=== PATIENT | male | born 1990 | race Caucasian/White ===

== ENCOUNTER 2017-01-19 13:46 | Emergency (ER) | payer MEDICAID ==
--- NOTE | 2017-01-19 13:49 | EDM.PDOC ---
ED HPI ENT - General Chief Complaint: ENT Problem Stated Complaint: COLD [phone] Time Seen by Provider: 01/19/17 13:48 Source of Information: Reports: Patient, Old records, RN, RN notes reviewed History Limitations: Reports: No limitations - History of Present Illness INITIAL COMMENTS - FREE TEXT/NARRATIVE: C/O cold Sx's, congestion x1 week. Admits to sore throat. Had fever at onset, but not since. Employer sent him home today due to cough. Timing/Duration: Reports: Week(s): (1), Constant Severity: moderate Improves with: Reports: None Worsens with: Reports: None Associated Symptoms: Reports: no other symptoms - Related Data Allergies/ADRs: Allergies Allergy/AdvReac Type Severity Reaction Status Date / Time Sulfa (Sulfonamide Allergy Hives Verified 01/19/17 13:53 Antibiotics) Home Meds: Home Meds . [Unable to Verify Home Med List] 01/19/17 [History] Past Medical History - Past Health History Medical/Surgical History: Denies Medical/Surgical History HEENT History: Reports: Impaired vision, Other (see below) Other HEENT History: dental pain Cardiovascular History: Reports: Hypertension Respiratory History: Reports: None Gastrointestinal History: Reports: None Genitourinary History: Reports: None Neurological History: Reports: Migraines - Past Surgical History GI Surgical History: Reports: Appendectomy Musculoskeletal Surgical History: Reports: Other (see below) Other Musculoskeletal Surgeries/Procedures:: wrist fracture Social & Family History - Family History Family Medical History: Noncontributory - Tobacco Use Smoking Status *Q: Current Every Day Smoker Years of Tobacco use: 14 Packs/Tins Daily: 0.5 Used Tobacco, but Quit: No Month Tobacco Last Used: february 2015 Second Hand Smoke Exposure: No - Caffeine Use Caffeine Use: Reports: Coffee, Energy drinks, Soda, Tea - Alcohol Use Days Per Week of Alcohol Use: 1 Number of Drinks Per Day: 4 Total Drinks Per Week: 4 - Recreational Drug Use Recreational Drug Use: No - Living Situation & Occupation Living situation: Reports: single, with family Occupation: employed ED ROS ENT - Review of Systems Review Of Systems: ROS reveals no pertinent complaints other than HPI. ED EXAM, ENT - Physical Exam Exam: See Below Exam Limited By: No limitations General Appearance: alert, WD/WN, no apparent distress Eye Exam: bilateral eye: normal inspection Ears: normal external exam, normal canal, hearing grossly normal, normal TMs Nose: no blood, nasal discharge (thick, yellow). No: injected turbinates Mouth/Throat: Normal gums, Normal lips, Normal teeth, Other (postnasal drip, no pharyngeal erythema) Head: atraumatic, normocephalic Neck: normal inspection, supple, non-tender, full range of motion. No: lymphadenopathy (L), lymphadenopathy (R) Respiratory/Chest: no respiratory distress, lungs clear, normal breath sounds, no accessory muscle use, chest non-tender Cardiovascular: normal peripheral pulses, regular rate, rhythm, no edema, no gallop, no JVD, no murmur, no rub GI/Abdominal: normal bowel sounds, soft, non tender, no distention Neurological: alert, oriented, no motor/sensory deficits Psychiatric: normal affect, normal mood Skin: Warm, Dry, Intact, Normal color, No rash Course - Vital Signs Last Recorded V/S: Last Vital Signs Temp 36.1 C 01/19/17 14:00 Pulse 66 01/19/17 14:00 Resp 18 01/19/17 14:00 BP 128/73 01/19/17 14:00 Pulse Ox 97 01/19/17 14:00 - Orders/Labs/Meds Labs: Laboratory Tests 01/19/17 Range/Units 14:17 WBC 12.8 H (5.0-10.0) 10^3/uL RBC 5.15 (4.6-6.2) 10^6/uL Hgb 16.0 (14.0-18.0) g/dL Hct 45.9 (40.0-54.0) % MCV 89.1 (80-100) fL MCH 31.1 (27.0-34.0) pg MCHC 34.9 (33.0-35.0) g/dL Plt Count 346 (150-450) 10^3/uL Neut % (Auto) 68.2 (42.2-75.2) % Lymph % (Auto) 24.4 (20.5-50.1) % Dauphin % (Auto) 5.8 (2-8) % Eos % (Auto) 1.4 (1.0-3.0) % Baso % (Auto) 0.2 (0.0-1.0) % - Radiology Interpretation Free Text/Narrative:: CXR: mild bronchitis, no focal infiltrate per Rad. report. Departure - Departure Time of Disposition: 14:45 Disposition: Home, Self-Care 01 Condition: good Clinical Impression: URI with cough and congestion Acute bronchitis Qualifiers: Bronchitis organism: unspecified organism Qualified Code(s): J20.9 - Acute bronchitis, unspecified Pharyngitis Qualifiers: Pharyngitis/tonsillitis etiology: unspecified etiology Qualified Code(s): J02.9 - Acute pharyngitis, unspecified Instructions: Acute Bronchitis, [id number], Upper Respiratory Infection, Adult, Pyie-ed-Sxkg Forms: ED Department Discharge Additional Instructions: Rx: Z-Krishna 250mg Rx: Tessalon Perles 200mg Rx: Claritin D-24HR Follow up in clinic if not improving in 2 to 3 days.
[2017-01-19 14:03] VITALS: BP 128/73
--- NOTE | 2017-01-19 14:46 | CR ---
CLINICAL HISTORY: 26-year-old male with productive cough. INTERPRETATION: Normal cardiac silhouette. No alveolar edema or dependent effusion. Subtle peribronchial "cuffing" suggesting reactive airway disease or bronchitis but no lung mass, hi lar lymphadenopathy or focal lobar pneumonia. No atelectasis/collapse. No pneumothorax. CONCLUSION: Mild bronchitis. No lobar pneumonia.
== END 2017-01-19 14:55 | disposition home or self-care (01) ==
LOC: DL.ED 13:46
DX: J20.9 Acute bronchitis, unspecified (principal); J06.9 Acute upper respiratory infection, unspecified; J02.9 Acute pharyngitis, unspecified; I10 Essential (primary) hypertension; F17.210 Nicotine dependence, cigarettes, uncomplicated; Z90.49 Acquired absence of other specified parts of digestive tract; Z88.2 Allergy status to sulfonamides
CPT/HCPCS: 36415; 71020; 85025; 99283

== ENCOUNTER 2017-05-30 14:38 | Emergency (ER) | payer MEDICAID ==
[2017-05-30 15:17] VITALS: BP 127/72
[2017-05-30] MEDS ORDERED: Ketorolac 30 MG/ML SDV IM ONE (15:44)
[2017-05-30] MEDS ORDERED: Cyclobenzaprine 10 MG Tab PO ONE (15:45)
[2017-05-30] MEDS ORDERED: Gabapentin 300 MG Cap PO ONE (15:48)
--- NOTE | 2017-05-31 11:53 | EDM.PDOC ---
Scribed by Leida Zepeda 05/30/17 [id number] for Gregory Salinas MD ED HPI GENERAL MEDICAL PROBLEM - General Chief Complaint: Back Pain or Injury Stated Complaint: BACK PAINS, [phone] Time Seen by Provider: 05/30/17 15:35 Source of Information: Reports: Patient, RN, RN Notes Reviewed History Limitations: Reports: No Limitations - History of Present Illness INITIAL COMMENTS - FREE TEXT/NARRATIVE: Complaint of onset back pain 2 days ago while playing with his son. No specific injury. Complaint of pain with muscle spasms and painful range of motion. Pain shoots into the left buttock, but not down the leg. Location: Reports: Back Quality: Reports: Ache Severity: Severe Improves with: Reports: None Worsens with: Reports: None Associated Symptoms: Reports: No Other Symptoms Left Middle Back Pain Score (Numeric/FACES): 6 - Related Data Allergies Allergy/AdvReac Type Severity Reaction Status Date / Time Sulfa (Sulfonamide Allergy Hives Verified 05/30/17 15:12 Antibiotics) Home Meds: Home Meds Propranolol HCl 40 mg PO 05/30/17 [History] Past Medical History - Past Health History Medical/Surgical History: Denies Medical/Surgical History HEENT History: Reports: Impaired Vision Other HEENT History: dental pain Cardiovascular History: Reports: Hypertension Respiratory History: Reports: None Gastrointestinal History: Reports: None Genitourinary History: Reports: None Musculoskeletal History: Reports: Back Pain, Chronic Neurological History: Reports: Migraines Psychiatric History: Reports: None Endocrine/Metabolic History: Reports: None Hematologic History: Reports: None Immunologic History: Reports: None Oncologic (Cancer) History: Reports: None Dermatologic History: Reports: None - Infectious Disease History Infectious Disease History: Reports: None - Past Surgical History Head Surgeries/Procedures: Reports: None GI Surgical History: Reports: Appendectomy Social & Family History - Family History Family Medical History: Noncontributory - Tobacco Use Smoking Status *Q: Current Every Day Smoker Years of Tobacco use: 13 Packs/Tins Daily: 0.5 Used Tobacco, but Quit: No Month Tobacco Last Used: february 2015 Second Hand Smoke Exposure: No - Caffeine Use Caffeine Use: Reports: Coffee, Energy Drinks, Soda - Alcohol Use Days Per Week of Alcohol Use: 1 Number of Drinks Per Day: 4 Total Drinks Per Week: 4 - Recreational Drug Use Recreational Drug Use: No - Living Situation & Occupation Living situation: Reports: Single, with Family Occupation: Employed ED ROS GENERAL - Review of Systems Review Of Systems: ROS reveals no pertinent complaints other than HPI. ED EXAM,LOWER BACK PAIN/INJURY - Physical Exam Exam: See Below Exam Limited By: No Limitations General Appearance: Alert, WD/WN, No Apparent Distress Neck: Normal Inspection, Supple, Non-Tender, Full Range of Motion Respiratory/Chest: No Respiratory Distress, Lungs Clear, Normal Breath Sounds, No Accessory Muscle Use, Chest Non-Tender Cardiovascular: Normal Peripheral Pulses, Regular Rate, Rhythm, No Edema, No Gallop, No JVD, No Murmur, No Rub GI/Abdominal: Normal Bowel Sounds, Soft, Non-Tender, No Organomegaly, No Distention, No Abnormal Bruit, No Mass Back Exam: Other (lumbar paraspinal tenderness with muscle spasms left greater than right. Decreased L-spine range of motion due to pain. Focal L SI joint tenderness.) Neurological: Alert, Normal Mood/Affect, Normal Dorsiflexion, CN II-XII Intact, Normal Plantar Flexion, Normal Gait, Normal Reflexes, No Motor/Sensory Deficits , Oriented x 3 Psychiatric: Normal Affect, Normal Mood Skin Exam: Warm, Dry, Intact, Normal Color, No Rash Course - Vital Signs Last Recorded V/S: Last Vital Signs Temp 36.4 C 05/30/17 15:14 Pulse 70 05/30/17 15:14 Resp 16 05/30/17 15:14 BP 127/72 05/30/17 15:14 Pulse Ox 98 05/30/17 15:14 - Orders/Labs/Meds Meds: Medications Discontinued Medications Generic Name Dose Route Start Last Admin Trade Name Audrey PRN Reason Stop Dose Admin Cyclobenzaprine HCl 10 mg 05/30/17 15:45 05/30/17 16:03 Flexeril PO 05/30/17 15:46 10 mg ONETIME ONE Administration Gabapentin 300 mg 05/30/17 15:48 05/30/17 16:03 Neurontin PO 05/30/17 15:49 300 mg ONETIME ONE Administration Ketorolac Tromethamine 60 mg 05/30/17 15:44 05/30/17 16:03 Toradol IM 05/30/17 15:45 60 mg ONETIME ONE Administration Departure - Departure Time of Disposition: 16:19 Disposition: Home, Self-Care 01 Condition: Good Clinical Impression: Acute exacerbation of chronic low back pain, Lumbar paraspinal muscle spasm - Discharge Information Instructions: Chronic Back Pain Forms: ED Department Discharge Additional Instructions: RX: Gabapentin 300mg. RX: Medrol dose Pac. Follow up in clinic for recheck in 5 to 7 days. I have read and agree with the documentation that has been completed regarding this visit. By signing this record, I attest that the documentation was completed in my physical presence and is an accurate record of the encounter.
== END 2017-05-30 16:30 | disposition home or self-care (01) ==
LOC: DL.ED 14:38
DX: M62.830 Muscle spasm of back (principal); M54.5 Low back pain; G89.29 Other chronic pain; I10 Essential (primary) hypertension; G43.909 Migraine, unspecified, not intractable, without status migrainosus; H54.7 Unspecified visual loss; F17.210 Nicotine dependence, cigarettes, uncomplicated; Z88.2 Allergy status to sulfonamides
CPT/HCPCS: 96372; 99283; A9270; J1885

== ENCOUNTER 2017-09-03 16:29 | Emergency (ER) | payer MEDICAID ==
[2017-09-03 16:36] VITALS: BP 147/86
--- NOTE | 2017-09-03 16:51 | EDM.PDOC ---
ED HPI GENERAL MEDICAL PROBLEM - General Chief Complaint: Back Pain or Injury Stated Complaint: BACK PAIN [id number] Time Seen by Provider: 09/03/17 16:41 Source of Information: Reports: Patient, RN, RN Notes Reviewed History Limitations: Reports: No Limitations - History of Present Illness INITIAL COMMENTS - FREE TEXT/NARRATIVE: Pt presents to the ER with c/o back pain after he slipped on the ice and fell. He states he did hit his head, but not hard. He denies loss of concsiousness. He states the pain is in the upper back and the right shoulder blade. He rates the pain 2-3/10 when he is sitting and relaxed, but a 5-6/10 with movement. He states the fall occurred today between 12:30 and 1:00. Onset: Today, Sudden Onset Date: 09/03/17 Onset Time: 12:30 Location: Reports: Back Quality: Reports: Pressure, Throbbing Severity: Moderate Improves with: Reports: Rest Worsens with: Reports: Movement Associated Symptoms: Reports: No Other Symptoms Back Pain Score (Numeric/FACES): 3 - Related Data Allergies Allergy/AdvReac Type Severity Reaction Status Date / Time Sulfa (Sulfonamide Allergy Hives Verified 05/30/17 15:12 Antibiotics) Home Meds: Home Meds Propranolol HCl 40 mg PO DAILY 05/30/17 [History] Albuterol [IJD: Ventolin HFA] 2 puff INH ASDIRECTED PRN 09/03/17 [History] Past Medical History - Past Health History Medical/Surgical History: Denies Medical/Surgical History HEENT History: Reports: Impaired Vision Other HEENT History: dental pain Cardiovascular History: Reports: Hypertension Respiratory History: Reports: None Gastrointestinal History: Reports: None Genitourinary History: Reports: None Musculoskeletal History: Reports: Back Pain, Chronic Neurological History: Reports: Migraines Psychiatric History: Reports: None Endocrine/Metabolic History: Reports: None Hematologic History: Reports: None Immunologic History: Reports: None Oncologic (Cancer) History: Reports: None Dermatologic History: Reports: None - Infectious Disease History Infectious Disease History: Reports: None - Past Surgical History Head Surgeries/Procedures: Reports: None GI Surgical History: Reports: Appendectomy Social & Family History - Family History Family Medical History: Noncontributory - Tobacco Use Smoking Status *Q: Current Every Day Smoker Years of Tobacco use: 13 Packs/Tins Daily: 0.5 Used Tobacco, but Quit: No Month Tobacco Last Used: february 2015 Second Hand Smoke Exposure: No - Caffeine Use Caffeine Use: Reports: Coffee, Energy Drinks, Soda - Alcohol Use Days Per Week of Alcohol Use: 1 Number of Drinks Per Day: 4 Total Drinks Per Week: 4 - Recreational Drug Use Recreational Drug Use: No - Living Situation & Occupation Living situation: Reports: Single, with Family Occupation: Employed ED ROS GENERAL - Review of Systems Review Of Systems: ROS reveals no pertinent complaints other than HPI. ED EXAM, UPPER BACK/NECK PAIN - Physical Exam Exam: See Below Exam Limited By: No Limitations General Appearance: Alert, WD/WN, No Apparent Distress Eye Exam: Bilateral Eye: EOMI, Normal Inspection Ears Exam: Normal External Exam, Hearing Grossly Normal Nose Exam: Normal Inspection Throat/Mouth Exam: Normal Inspection, Normal Voice, No Airway Compromise Head Exam: Atraumatic, Normocephalic Neck Exam: Non-Tender, Full Range of Motion, Normal Alignment, Normal Inspection Nexus Criteria: No: Posterior, Midline Cervical Tenderness, Evidence of Intoxication, Altered Level of Consciousness, Focal Neurological Deficit, Painful Distraction Injuries Cardiovascular/Respiratory: Regular Rate, Rhythm, No M/R/G, Normal Peripheral Pulses, No JVD, Normal Breath Sounds, No Respiratory Distress GI/Abdominal: Normal Bowel Sounds, Soft, Non-Tender, No Organomegaly, No Distention, No Abnormal Bruit, No Mass (Male) Exam: Deferred Rectal (Males) Exam: Deferred Back Exam: Normal Inspection, Decreased Range of Motion, Vertebral Tenderness, Other (right scapula pain) Extremities: Normal Inspection, Normal Range of Motion, Non-Tender, No Pedal Edema, Normal Capillary Refill 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 As 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, No Motor/Sensory Deficits, Alert, Normal Mood/Affect, Oriented x 3 Psychiatric: Normal Affect, Normal Mood Skin Exam: Normal Color, Warm/Dry Lymphatic: No Adenopathy Course - Vital Signs Last Recorded V/S: Last Vital Signs Temp 97.6 F 09/03/17 16:35 Pulse 79 09/03/17 16:35 Resp 18 09/03/17 16:35 BP 147/86 H 09/03/17 16:35 Pulse Ox 100 09/03/17 16:35 - Orders/Labs/Meds Orders: Active Orders 24 hr Category Date Time Status Scapula Rt [CR] Urgent Exams 09/03/17 16:45 Taken Thoracic Spine 3V [CR] Urgent Exams 09/03/17 16:45 Taken - Radiology Interpretation Free Text/Narrative:: Thoracic spine xray: No acute findings Right scapula xray: No acute findings See rad report Departure - Departure Time of Disposition: 17:54 Disposition: Home, Self-Care 01 Condition: Fair Clinical Impression: Contusion Qualifiers: Encounter type: initial encounter Contusion area: shoulder Laterality: right Qualified Code(s): S40.011A - Contusion of right shoulder, initial encounter - Discharge Information Instructions: Muscle Strain, Ryxh-ja-Only, Back Injury Prevention, [id number] , Back Pain, Adult, Mzut-sg-Naox Forms: ED Department Discharge Additional Instructions: Ibuprofen and tylenol for pain. Rest, ice and heat alternate. Follow up with your primary care facility next week if no improvement. - My Orders Last 24 Hours: My Active Orders 09/03/17 16:45 Scapula Rt [CR] Urgent Thoracic Spine 3V [CR] Urgent - Assessment/Plan Last 24 Hours: My Active Orders 09/03/17 16:45 Scapula Rt [CR] Urgent Thoracic Spine 3V [CR] Urgent
== END 2017-09-03 18:07 | disposition home or self-care (01) ==
LOC: DL.ED 16:29
DX: S40.011A Contusion of right shoulder, initial encounter (principal); I10 Essential (primary) hypertension; F17.210 Nicotine dependence, cigarettes, uncomplicated; Z88.2 Allergy status to sulfonamides; Z79.899 Other long term (current) drug therapy; W00.0XXA Fall on same level due to ice and snow, initial encounter
CPT/HCPCS: 72072; 73010-RT; 99283

== ENCOUNTER 2017-10-05 16:20 | Emergency (ER) | payer MEDICAID | END 2017-10-05 16:58 | disposition left against medical advice (07) | LOC: DL.ED 16:20 | DX: Z53.21 Procedure and treatment not carried out due to patient leaving prior to being seen by health care provider (principal) ==

== ENCOUNTER 2018-05-08 18:36 | Emergency (ER) | payer MEDICAID ==
[2018-05-08] MEDS ORDERED: diphenhydrAMINE 50 MG/ML SDV IM ONE (20:16)
[2018-05-08] MEDS ORDERED: predniSONE 20 MG Tab PO ONE (20:16)
--- NOTE | 2018-05-08 20:17 | EDM.PDOC ---
ED HPI GENERAL MEDICAL PROBLEM - General Chief Complaint: Lower Extremity Injury/Pain Stated Complaint: ALLERGIC REACTION -FACE/HEAD Time Seen by Provider: 05/08/18 20:10 Source of Information: Reports: Patient History Limitations: Reports: No Limitations - History of Present Illness INITIAL COMMENTS - FREE TEXT/NARRATIVE: PT comes to the ED with complaints of injury to his left knee and sinus congestion sneezing itchy watery eyes flushing to his face. The patient fell yesterday against a wall and injured his knee. He is able to ambulate easily without difficulty no change in the sensation to his left knee. No breaks in the skin. 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 He has tried nothing for the symptoms. No difficulty breathing swallowing SOB or chest. Left Knee Pain Score (Numeric/FACES): 8 - Related Data Allergies Allergy/AdvReac Type Severity Reaction Status Date / Time Sulfa (Sulfonamide Allergy Hives Verified 05/30/17 15:12 Antibiotics) Home Meds: Home Meds Propranolol HCl 40 mg PO DAILY 05/30/17 [History] Albuterol [IJD: Ventolin HFA] 2 puff INH ASDIRECTED PRN 09/03/17 [History] Past Medical History - Past Health History Medical/Surgical History: Denies Medical/Surgical History HEENT History: Reports: Impaired Vision Other HEENT History: dental pain Cardiovascular History: Reports: Hypertension Respiratory History: Reports: None Gastrointestinal History: Reports: None Genitourinary History: Reports: None Musculoskeletal History: Reports: Back Pain, Chronic Neurological History: Reports: Migraines Psychiatric History: Reports: None Endocrine/Metabolic History: Reports: None Hematologic History: Reports: None Immunologic History: Reports: None Oncologic (Cancer) History: Reports: None Dermatologic History: Reports: None - Infectious Disease History Infectious Disease History: Reports: None - Past Surgical History Head Surgeries/Procedures: Reports: None GI Surgical History: Reports: Appendectomy Social & Family History - Family History Family Medical History: Noncontributory - Tobacco Use Smoking Status *Q: Current Every Day Smoker Years of Tobacco use: 14 Packs/Tins Daily: 8 - Caffeine Use Caffeine Use: Reports: Energy Drinks - Alcohol Use Date of Last Drink: 08/06/18 - Recreational Drug Use Recreational Drug Use: No - Living Situation & Occupation Living situation: Reports: Single, with Family Occupation: Employed Review of Systems - Review of Systems Review Of Systems: ROS reveals no pertinent complaints other than HPI. ED EXAM, GENERAL - Physical Exam Exam: See Below Free Text/Narrative:: He ambulates without difficulty. Exam Limited By: No Limitations General Appearance: Alert, WD/WN, No Apparent Distress Eye Exam: Bilateral Eye: Conjunctival Injection, EOMI, Normal Fundi, PERRL Ears: Normal Canal, Normal TMs. No: Normal External Exam (Flushing no swelling increased warmth. ) Ear Exam: Bilateral Ear: TM normal Nose: Clear Rhinorrhea, Other (Turbinates erythematous and swollen. Congestion. ). No: Nasal Deformity Throat/Mouth: Normal Inspection, Normal Lips, Normal Teeth, Normal Gums, Normal Oropharynx, Normal Voice, No Airway Compromise Head: Atraumatic, Normocephalic Neck: Normal Inspection, Supple, Non-Tender, Full Range of Motion Respiratory/Chest: No Respiratory Distress, Lungs Clear, Normal Breath Sounds, No Accessory Muscle Use, Chest Non-Tender Cardiovascular: Normal Peripheral Pulses, Regular Rate, Rhythm, No Murmur GI/Abdominal: Normal Bowel Sounds, Soft, No Distention (Male) Exam: Deferred Rectal (Males) Exam: Deferred Back Exam: Normal Inspection, Full Range of Motion Extremities: Normal Inspection, Normal Range of Motion, Non-Tender, Normal Capillary Refill Neurological: Alert, Oriented, CN II-XII Intact, Normal Cognition, Normal Reflexes, No Motor/Sensory Deficits Psychiatric: Normal Affect, Normal Mood Skin Exam: Warm, Dry, Intact, No Rash, Increased Warmth (To the face as described above. ) Lymphatic: No Adenopathy Course - Vital Signs Last Recorded V/S: Last Vital Signs Temp 36.9 C 05/08/18 21:00 Pulse 89 05/08/18 21:00 Resp 17 05/08/18 21:00 BP 132/76 05/08/18 21:00 Pulse Ox 100 05/08/18 21:00 - Orders/Labs/Meds Meds: Medications Discontinued Medications Generic Name Dose Route Start Last Admin Trade Name Freq PRN Reason Stop Dose Admin Diphenhydramine HCl 50 mg 05/08/18 20:16 05/08/18 20:23 Benadryl IM 05/08/18 20:17 50 mg ONETIME ONE Administration Prednisone 60 mg 05/08/18 20:16 05/08/18 20:23 Prednisone PO 05/08/18 20:17 60 mg ONETIME ONE Administration - Radiology Interpretation Free Text/Narrative:: Xray left knee normal per radiology. - Re-Assessments/Exams Free Text/Narrative Re-Assessment/Exam: 05/09/18 18:46 Benadryl and prednisone with the resolution of the flushing and the itching and sinus congestion. The HEENT complaints are most likely allergic from the mold and environmental exposure. Rinse and symptomatic management at this time with prednisone. The knee xray is normal and RICe therapy and pain management. Pt was comfortable with the plan and his questions answered. Departure - Departure Time of Disposition: 20:53 Disposition: Home, Self-Care 01 Clinical Impression: Allergic reaction Qualifiers: Encounter type: initial encounter Qualified Code(s): T78.40XA - Allergy, unspecified, initial encounter Contusion of knee, left Qualifiers: Encounter type: initial encounter Qualified Code(s): S80.02XA - Contusion of left knee, initial encounter - Discharge Information Instructions: Allergies, Adult, Hzym-di-Juuj, Contusion, [id number] Referrals: PCP,Unobtain [Primary Care Provider] - Forms: ED Department Discharge Additional Instructions: Benadryl as needed for itching and flushing caution sedation. Zyrtec, Tere or Xyzal daily for symptoms as well does not cause drowsiness. Nasal saline rinses 4 times a day for the next 5 days. Fluticasone nasal spray 2 spray each nostril twice daily for a week then 1 spray a day each nostril till resolution. All above are OTC. Prednisone 60mg by mouth every day for the next 5 days. RX given to the patient. For the contusion Tylenol and or Ibuprofen as needed for pain. Rice therapy to the knee. REturn to the ED if new or worsening symptoms. Follow up with primary care provider in the next 4-6 days if not improving sooner if worse. - Assessment/Plan Assessment:: Acute allergic sinusitis Allergic reaction Left knee contusion. Plan: Benadryl as needed for itching and flushing caution sedation. Zyrtec, Tere or Xyzal daily for symptoms as well does not cause drowsiness. Nasal saline rinses 4 times a day for the next 5 days. Fluticasone nasal spray 2 spray each nostril twice daily for a week then 1 spray a day each nostril till resolution. All above are OTC. Prednisone 60mg by mouth every day for the next 5 days. RX given to the patient. For the contusion Tylenol and or Ibuprofen as needed for pain. Rice therapy to the knee. REturn to the ED if new or worsening symptoms. Follow up with primary care provider in the next 4-6 days if not improving sooner if worse.
[2018-05-08 21:19] VITALS: BP 132/76
== END 2018-05-08 21:03 | disposition home or self-care (01) ==
LOC: DL.ED 18:36
DX: S80.02XA Contusion of left knee, initial encounter (principal); T78.40XA Allergy, unspecified, initial encounter; I10 Essential (primary) hypertension; F17.210 Nicotine dependence, cigarettes, uncomplicated; Z88.2 Allergy status to sulfonamides; Z79.899 Other long term (current) drug therapy; W22.01XA Walked into wall, initial encounter
CPT/HCPCS: 73562-LT; 96372; 99283; A9270-GY; J1200

== ENCOUNTER 2018-10-25 11:00 | Emergency (ER) | payer MEDICAID ==
--- NOTE | 2018-10-25 11:20 | EDM.PDOC ---
ED HPI GENERAL MEDICAL PROBLEM - General Chief Complaint: Upper Extremity Injury/Pain Stated Complaint: FELL ON ICE, HURT HAND Time Seen by Provider: 10/25/18 11:19 Source of Information: Reports: Patient, RN, RN Notes Reviewed History Limitations: Reports: No Limitations - History of Present Illness INITIAL COMMENTS - FREE TEXT/NARRATIVE: Pt c/o left thumb pain sustained a few days ago when he fell on the ice and "jammed" his thumb. He denies any other injury. Duration: Day(s): (3), Constant Location: Reports: Other (Left thumb) Quality: Reports: Ache Severity: Moderate Improves with: Reports: None Worsens with: Reports: Other (Touch), Movement Associated Symptoms: Reports: No Other Symptoms - Related Data Allergies Allergy/AdvReac Type Severity Reaction Status Date / Time Sulfa (Sulfonamide Allergy Hives Verified 10/25/18 11:06 Antibiotics) Home Meds: Home Meds Propranolol HCl 40 mg PO DAILY 05/30/17 [History] Albuterol [IJD: Ventolin HFA] 2 puff INH ASDIRECTED PRN 09/03/17 [History] Past Medical History - Past Health History Medical/Surgical History: Denies Medical/Surgical History HEENT History: Reports: Impaired Vision Other HEENT History: dental pain Cardiovascular History: Reports: Hypertension Respiratory History: Reports: None Gastrointestinal History: Reports: None Genitourinary History: Reports: None Musculoskeletal History: Reports: Back Pain, Chronic Neurological History: Reports: Migraines Psychiatric History: Reports: None Endocrine/Metabolic History: Reports: None Hematologic History: Reports: None Immunologic History: Reports: None Oncologic (Cancer) History: Reports: None Dermatologic History: Reports: None - Infectious Disease History Infectious Disease History: Reports: None - Past Surgical History Head Surgeries/Procedures: Reports: None GI Surgical History: Reports: Appendectomy Social & Family History - Family History Family Medical History: Noncontributory - Caffeine Use Caffeine Use: Reports: Energy Drinks - Living Situation & Occupation Living situation: Reports: Single, with Family Occupation: Employed Review of Systems - Review of Systems Review Of Systems: ROS reveals no pertinent complaints other than HPI. ED EXAM, GENERAL - Physical Exam Exam: See Below Exam Limited By: No Limitations General Appearance: Alert, WD/WN, No Apparent Distress Head: Atraumatic, Normocephalic Respiratory/Chest: No Respiratory Distress Extremities: Normal Capillary Refill, Limited Range of Motion (left thumb PIP joint due to pain), Other (Left distal thumb with mild soft tissue swelling and contusion, no erythema, no visible deformity, the skin is intact). No: Joint Swelling, Increased Warmth, Redness Neurological: Alert, Oriented, No Motor/Sensory Deficits Psychiatric: Normal Mood Skin Exam: Warm, Dry, Intact ED TRAUMA EXTREMITY PROCEDURES - Splinting Left Thumb Splint Site: Left thumb Pre-Procedure NV Status: Normal Post-Procedure NV Status: Normal Splint Material: Aluminum-Foam Splint Design: Sugar Tong Applied & Form Fitted By: Nurse Provider Post-Splint Application NV Check: NV Status Normal, Good Position Complications: No Course - Vital Signs Last Recorded V/S: Last Vital Signs Temp 36.6 C 10/25/18 11:04 Pulse 101 H 10/25/18 11:04 Resp 16 10/25/18 11:04 BP 148/88 H 10/25/18 11:04 Pulse Ox 100 10/25/18 11:04 - Orders/Labs/Meds Orders: Active Orders 24 hr Category Date Time Status Fingers Thumb Lt FA [CR] Urgent Exams 10/25/18 11:18 Taken - Radiology Interpretation Free Text/Narrative:: X-ray left thumb: nondisplaced distal phalanx fracture, see Rad. report. Departure - Departure Time of Disposition: 11:36 Disposition: Home, Self-Care 01 Condition: Good Clinical Impression: Closed fracture of distal phalanx of left thumb Qualifiers: Encounter type: initial encounter Fracture alignment: nondisplaced Qualified Code(s): S62.525A - Nondisplaced fracture of distal phalanx of left thumb, initial encounter for closed fracture - Discharge Information *PRESCRIPTION DRUG MONITORING PROGRAM REVIEWED*: Not Applicable *COPY OF PRESCRIPTION DRUG MONITORING REPORT IN PATIENT B[place]AK: Not Applicable Instructions: Thumb Fracture Forms: ED Department Discharge Additional Instructions: Rx: Tylenol No. 3 *Do not drive while under the influence of this medication. Wear left thumb splint for 3 weeks. Follow up in clinic with your doctor in 10 to 15 days for recheck. - My Orders Last 24 Hours: My Active Orders 10/25/18 11:18 Fingers Thumb Lt FA [CR] Urgent - Assessment/Plan Last 24 Hours: My Active Orders 10/25/18 11:18 Fingers Thumb Lt FA [CR] Urgent
[2018-10-25 11:27] VITALS: BP 148/88
== END 2018-10-25 11:45 | disposition home or self-care (01) ==
LOC: DL.ED 11:00
DX: S62.525A Nondisplaced fracture of distal phalanx of left thumb, initial encounter for closed fracture (principal); Z88.2 Allergy status to sulfonamides; I10 Essential (primary) hypertension; W00.9XXA Unspecified fall due to ice and snow, initial encounter
CPT/HCPCS: 73140-FA; 99283

== ENCOUNTER 2018-12-07 06:44 | Emergency (ER) | payer MEDICAID ==
[2018-12-07 07:08] VITALS: BP 125/72
[2018-12-07] MEDS ORDERED: Sodium Chloride 0.9% 1,000 ML IV ONE ×2 (07:14→08:34)
--- NOTE | 2018-12-07 07:41 | EDM.PDOC ---
ED HPI GENERAL MEDICAL PROBLEM - General Chief Complaint: Abdominal Pain Stated Complaint: STOMACH PAINS,COLD SWEATS [id number] Time Seen by Provider: 12/07/18 07:25 Source of Information: Reports: Patient History Limitations: Reports: No Limitations - History of Present Illness INITIAL COMMENTS - FREE TEXT/NARRATIVE: This 28 yo male patient reports to the ED with an acute onset of abdominal pain. The patient reports he got up this morning to use the bathroom when he started to have abdominal pain. The patient reports he felt hot all over and just came to the ED. 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 The patient continues to report upper abdominal pain. Onset: Today Duration: Constant Location: Reports: Abdomen Quality: Reports: Ache, Sharp Severity: Moderate Improves with: Reports: None Worsens with: Reports: None Context: Reports: Other Associated Symptoms: Reports: No Other Symptoms abdomen Pain Score (Numeric/FACES): 6 - Related Data Allergies Allergy/AdvReac Type Severity Reaction Status Date / Time Sulfa (Sulfonamide Allergy Hives Verified 12/07/18 07:11 Antibiotics) Home Meds: Home Meds Propranolol HCl 40 mg PO DAILY 05/30/17 [History] Albuterol [IJD: Ventolin HFA] 2 puff INH ASDIRECTED PRN 09/03/17 [History] Past Medical History - Past Health History Medical/Surgical History: Denies Medical/Surgical History HEENT History: Reports: Impaired Vision Other HEENT History: dental pain Cardiovascular History: Reports: Hypertension Respiratory History: Reports: None Gastrointestinal History: Reports: None Genitourinary History: Reports: None Musculoskeletal History: Reports: Back Pain, Chronic Neurological History: Reports: Migraines Psychiatric History: Reports: None Endocrine/Metabolic History: Reports: None Hematologic History: Reports: None Immunologic History: Reports: None Oncologic (Cancer) History: Reports: None Dermatologic History: Reports: None - Infectious Disease History Infectious Disease History: Reports: None - Past Surgical History Head Surgeries/Procedures: Reports: None Respiratory Surgical History: Reports: None GI Surgical History: Reports: Appendectomy Musculoskeletal Surgical History: Reports: None Social & Family History - Family History Family Medical History: Noncontributory - Tobacco Use Smoking Status *Q: Current Every Day Smoker Years of Tobacco use: 1 Packs/Tins Daily: 0.5 Used Tobacco, but Quit: No Second Hand Smoke Exposure: Yes - Caffeine Use Caffeine Use: Reports: Coffee - Alcohol Use Days Per Week of Alcohol Use: 2 Number of Drinks Per Day: 2 Total Drinks Per Week: 4 - Recreational Drug Use Recreational Drug Use: No - Living Situation & Occupation Living situation: Reports: Single, with Family Occupation: Employed ED ROS GENERAL - Review of Systems Review Of Systems: ROS reveals no pertinent complaints other than HPI. ED EXAM, GI/ABD - Physical Exam Exam: See Below Exam Limited By: No Limitations General Appearance: Alert, WD/WN, Moderate Distress Eyes: Bilateral: Normal Appearance, EOMI Ears: Normal External Exam, Normal Canal, Hearing Grossly Normal, Normal TMs Nose: Normal Inspection, Normal Mucosa, No Blood Throat/Mouth: Normal Inspection, Normal Lips, Normal Teeth, Normal Gums, Normal Oropharynx, Normal Voice, No Airway Compromise Head: Atraumatic, Normocephalic Neck: Normal Inspection, Supple, Non-Tender, Full Range of Motion Respiratory/Chest: No Respiratory Distress, Lungs Clear, Normal Breath Sounds, No Accessory Muscle Use, Chest Non-Tender Cardiovascular: Normal Peripheral Pulses GI/Abdominal Exam: Normal Bowel Sounds, Soft, Non-Tender, No Organomegaly, No Distention, No Abnormal Bruit, No Mass, Pelvis Stable (Male) Exam: Deferred Rectal (Males) Exam: Deferred Back Exam: Normal Inspection, Full Range of Motion, NT Extremities: Normal Inspection, Normal Range of Motion, Non-Tender, Normal Capillary Refill, No Pedal Edema Neurological: Alert, Oriented, CN II-XII Intact, Normal Cognition, Normal Gait, Normal Reflexes, No Motor/Sensory Deficits Psychiatric: Normal Affect, Normal Mood Skin Exam: Warm, Dry, Intact, Normal Color, No Rash Lymphatic: No Adenopathy Course - Vital Signs Last Recorded V/S: Last Vital Signs Temp 36.4 C 12/07/18 07:07 Pulse 79 12/07/18 07:07 Resp 16 12/07/18 07:07 BP 125/72 12/07/18 07:07 Pulse Ox 99 12/07/18 07:07 - Orders/Labs/Meds Orders: Active Orders 24 hr Category Date Time Status CULTURE BLOOD [BC] Stat Lab 12/07/18 07:56 Ordered CULTURE STREP A CONFIRMATION [RM] Stat Lab 12/07/18 07:29 Results STREP SCRN A RAPID W CULT CONF [] Stat Lab 12/07/18 07:29 Received Labs: Laboratory Tests 12/07/18 12/07/18 12/07/18 Range/Units 07:25 07:25 07:25 WBC 17.3 H (5.0-10.0) 10^3/uL RBC 5.37 (4.6-6.2) 10^6/uL Hgb 17.0 (14.0-18.0) g/dL Hct 47.0 (40.0-54.0) % MCV 87.5 (80-100) fL MCH 31.7 (27.0-34.0) pg MCHC 36.2 H (33.0-35.0) g/dL Plt Count 326 (150-450) 10^3/uL Neut % (Auto) 72.8 (42.2-75.2) % Lymph % (Auto) 21.1 (20.5-50.1) % [place] % (Auto) 4.6 (2-8) % Eos % (Auto) 1.4 (1.0-3.0) % Baso % (Auto) 0.1 (0.0-1.0) % Sodium 135 (135-145) mmol/L Potassium 3.3 L (3.6-5.0) mmol/L Chloride 101 (101-111) mmol/L Carbon Dioxide 22.0 (21.0-31.0) mmol/L Anion Gap 15.3 BUN 22 H (7-18) mg/dL Creatinine 0.7 (0.6-1.3) mg/dL Est Cr Clr Drug Dosing 186.10 mL/min Estimated GFR (MDRD) > 60 BUN/Creatinine Ratio 31.42 Glucose 128 H (74-105) mg/dL Lactic Acid (0.5-2.2) mmol/L Calcium 9.0 (8.4-10.2) mg/dl Total Bilirubin 0.7 (0.2-1.0) mg/dL AST 22 (10-42) IU/L ALT 31 (10-60) IU/L Alkaline Phosphatase 62 (42-121) IU/L Total Protein 7.4 (6.7-8.2) g/dl Albumin 4.2 (3.2-5.5) g/dl Globulin 3.2 Albumin/Globulin Ratio 1.31 Amylase 37 (28-100) U/L Lipase 26 (22-51) U/L Urine Color (YELLOW) Urine Appearance (CLEAR) Urine pH (5.0-9.0) Ur Specific [place] (1.005-1.030) Urine Protein (NEGATIVE) Urine Glucose (UA) (NEGATIVE) Urine Ketones (NEGATIVE) Urine Occult Blood (NEGATIVE) Urine Nitrite (NEGATIVE) Urine Bilirubin (NEGATIVE) Urine Urobilinogen (0.2-1.0) mg/dL Ur Leukocyte Esterase (NEGATIVE) Salicylates < 4 mg/dL Urine Opiates Screen (NEGATIVE) Ur Oxycodone Screen (NEGATIVE) Urine Methadone Screen (NEGATIVE) Acetaminophen < 10 ug/mL Ur Barbiturates Screen (NEGATIVE) U Tricyclic Antidepress (NEGATIVE) Ur Phencyclidine Scrn (NEGATIVE) Ur Amphetamine Screen (NEGATIVE) U Methamphetamines Scrn (NEGATIVE) Urine MDMA Screen (NEGATIVE) U Benzodiazepines Scrn (NEGATIVE) Urine Cocaine Screen (NEGATIVE) U Marijuana (THC) Screen (NEGATIVE) Ethyl Alcohol 5 mg/dL 12/07/18 12/07/18 12/07/18 Range/Units 08:03 08:21 08:21 WBC (5.0-10.0) 10^3/uL RBC (4.6-6.2) 10^6/uL Hgb (14.0-18.0) g/dL Hct (40.0-54.0) % MCV (80-100) fL MCH (27.0-34.0) pg MCHC (33.0-35.0) g/dL Plt Count (150-450) 10^3/uL Neut % (Auto) (42.2-75.2) % Lymph % (Auto) (20.5-50.1) % [place] % (Auto) (2-8) % Eos % (Auto) (1.0-3.0) % Baso % (Auto) (0.0-1.0) % Sodium (135-145) mmol/L Potassium (3.6-5.0) mmol/L Chloride (101-111) mmol/L Carbon Dioxide (21.0-31.0) mmol/L Anion Gap BUN (7-18) mg/dL Creatinine (0.6-1.3) mg/dL Est Cr Clr Drug Dosing mL/min Estimated GFR (MDRD) BUN/Creatinine Ratio Glucose (74-105) mg/dL Lactic Acid 1.0 (0.5-2.2) mmol/L Calcium (8.4-10.2) mg/dl Total Bilirubin (0.2-1.0) mg/dL AST (10-42) IU/L ALT (10-60) IU/L Alkaline Phosphatase (42-121) IU/L Total Protein (6.7-8.2) g/dl Albumin (3.2-5.5) g/dl Globulin Albumin/Globulin Ratio Amylase (28-100) U/L Lipase (22-51) U/L Urine Color Yellow (YELLOW) Urine Appearance Clear (CLEAR) Urine pH 6.0 (5.0-9.0) Ur Specific [place] >= 1.030 (1.005-1.030) Urine Protein Negative (NEGATIVE) Urine Glucose (UA) Negative (NEGATIVE) Urine Ketones Negative (NEGATIVE) Urine Occult Blood Negative (NEGATIVE) Urine Nitrite Negative (NEGATIVE) Urine Bilirubin Negative (NEGATIVE) Urine Urobilinogen 0.2 (0.2-1.0) mg/dL Ur Leukocyte Esterase Negative (NEGATIVE) Salicylates mg/dL Urine Opiates Screen Negative (NEGATIVE) Ur Oxycodone Screen Negative (NEGATIVE) Urine Methadone Screen Negative (NEGATIVE) Acetaminophen ug/mL Ur Barbiturates Screen Negative (NEGATIVE) U Tricyclic Antidepress Negative (NEGATIVE) Ur Phencyclidine Scrn Negative (NEGATIVE) Ur Amphetamine Screen Positive H (NEGATIVE) U Methamphetamines Scrn Positive H (NEGATIVE) Urine MDMA Screen Negative (NEGATIVE) U Benzodiazepines Scrn Negative (NEGATIVE) Urine Cocaine Screen Negative (NEGATIVE) U Marijuana (THC) Screen Positive H (NEGATIVE) Ethyl Alcohol mg/dL Meds: Medications Discontinued Medications Generic Name Dose Route Start Last Admin Trade Name Freq PRN Reason Stop Dose Admin Sodium Chloride 1,000 mls @ 999 mls/hr 12/07/18 07:14 12/07/18 08:39 Normal Saline IV 12/07/18 08:14 Infused .BOLUS ONE Infusion Sodium Chloride 1,000 mls @ 999 mls/hr 12/07/18 08:34 12/07/18 08:37 Normal Saline IV 12/07/18 09:34 999 mls/hr .BOLUS ONE Administration Oseltamivir Phosphate 75 mg 12/07/18 09:00 12/07/18 09:08 Tamiflu PO 12/07/18 09:01 75 mg ONETIME ONE Administration Departure - Departure Time of Disposition: 09:38 Disposition: Home, Self-Care 01 Condition: Fair Clinical Impression: Influenza B, Dehydration - Discharge Information *PRESCRIPTION DRUG MONITORING PROGRAM REVIEWED*: Not Applicable *COPY OF PRESCRIPTION DRUG MONITORING REPORT IN PATIENT [place]: Not Applicable Instructions: Influenza, Adult, [id number] Forms: ED Department Discharge Care Plan Goals: The patient and parent were advised of the examination and lab results during the visit. The patient was given 2 liters of IV fluids and an oral dose of Tamiflu while in the ED. The patient was discharged with a script for Tamiflu ( 75 mg) to be given 1 by mouth 2 times per day for 5 days. The patient should be encouraged to increase their oral fluid intake. The patient may take Tylenol or ibuprofen as directed for fevers (Temperature above 100.4 degrees Fahrenheit). If the patient has any additional symptoms or concerns, the patient should follow-up with his primary care facility or return to the emergency department. - My Orders Last 24 Hours: My Active Orders 12/07/18 07:29 CULTURE STREP A CONFIRMATION [RM] Stat STREP SCRN A RAPID W CULT CONF [RM] Stat 12/07/18 07:56 CULTURE BLOOD [BC] Stat - Assessment/Plan Last 24 Hours: My Active Orders 12/07/18 07:29 CULTURE STREP A CONFIRMATION [RM] Stat STREP SCRN A RAPID W CULT CONF [RM] Stat 12/07/18 07:56 CULTURE BLOOD [BC] Stat
[2018-12-07 07:55] LABS: ANION GAP 15.3; CHLORIDE,CL 101 mmol/L (101-111); SODIUM,NA 135 mmol/L (135-145)
[2018-12-07 07:58] LABS: ACETAMINOPHEN < 10 ug/mL
[2018-12-07] MEDS ORDERED: Oseltamivir 75 MG Cap PO ONE (09:00)
== END 2018-12-07 09:47 | disposition home or self-care (01) ==
LOC: DL.ED 06:44
DX: J10.1 Influenza due to other identified influenza virus with other respiratory manifestations (principal); E86.0 Dehydration; I10 Essential (primary) hypertension; F17.210 Nicotine dependence, cigarettes, uncomplicated; Z79.899 Other long term (current) drug therapy; Z88.2 Allergy status to sulfonamides
CPT/HCPCS: 36415; 80053; 80305; 81003; 82150; 83605; 83690; 85025; 87040; 87081; 87430; 87804; 96360; 96361; 99284; A9270; G0480; J7030